=== PATIENT | female | born 1965 | race Two or more races ===

== ENCOUNTER 2024-02-08 16:00 | Inpatient (IN) | payer MEDICAID, OTHER ==
[~2024-02-08] VITALS: Ht 132.1 cm; Wt 68.6 kg
[2024-02-08] MEDS: ALBUTEROL SULF 2.5 MG/0.5ML(0.5%) NEB SOLN HHN ONE (16:39)
[2024-02-08 17:00] LABS: Basophils # (auto) 0.1 10 ^3/uL (0-0.2); Basophils % (auto) 0.8 % (0.0-2.0); Eosinophils # (auto) 0.2 10 ^3/uL (0-0.8); Eosinophils % (auto) 2.2 % (0.0-7.0); Hematocrit 42.9 % (36.0-46.0); Hemoglobin 14.7 g/dL (12.2-16.2); Lymphocytes # (auto) 2.9 10 ^3/uL (0.4-5.4); Lymphocytes % (auto) 40.7 % (10.0-50.0); Mean Corpuscular Hemoglobin 30.2 pg (28.0-32.0); Mean Corpuscular Hgb Conc. 34.2 g/dL (32.0-36.0); Mean Corpuscular Volume 88.2 fL (80.0-100.0); Monocytes # (auto) 0.5 10 ^3/uL (0-1.3); Monocytes % (auto) 6.3 % (0.0-12.0); Neutrophils # (auto) 3.6 10 ^3/uL (1.6-8.6); Nucleated Red Blood Cells % 0.1 %; Red Blood Cells 4.86 10^6/uL (4.0-5.20); Red Cell Distribution Width 13.6 % (11.8-14.3); White Blood Cell 7.2 10^3/uL (4.4-10.8)
[2024-02-08 17:10] LABS: Chloride 108 mmol/L (98-107); Potassium 4.2 mmol/L (3.5-5.1); Sodium 139 mmol/L (136-145)
[2024-02-08 17:11] LABS: Calcium 9.9 mg/dL (8.5-10.1)
[2024-02-08 17:16] LABS: BUN/Creatinine Ratio 16.5 (10.0-20.0); Blood Urea Nitrogen 14 mg/dL (9-23); Glucose 136 mg/dL (74-106)
[2024-02-08 17:36] LABS: Anion Gap 5 (5-15); Carbon Dioxide 26 mmol/L (20-30)
[2024-02-08 17:40] VITALS: PULSE 125; RESP 16; O2SAT 94
[2024-02-08] MEDS: methylPREDNISolone SOD SUCC 125 MG/2 ML VL IV ONE (17:41)
[2024-02-08 19:35] VITALS: PULSE 104; RESP 94; O2SAT 94
[2024-02-08] MEDS ORDERED: MORPHINE SULFATE INJ 2 MG/ml SYRG IV PRN ×2 (20:45)
[2024-02-08] MEDS ORDERED: ACETAMINOPHEN 325 MG TAB PO PRN (20:45)
[2024-02-08] MEDS ORDERED: HYDROcodone-ACET 5/325MG TAB PO PRN (20:45)
[2024-02-08] MEDS ORDERED: ONDANSETRON HCL 4 MG/2 ML VIAL IV PRN (20:45)
[2024-02-08] MEDS ORDERED: DOCUSATE SOD 100 MG CAP PO PRN (20:45)
[2024-02-08] MEDS ORDERED: NITROGLYCERIN 0.4 MG SL TAB SL PRN (20:45)
[2024-02-08 20:59] VITALS: BP 108/58; PULSE 109; RESP 24; O2SAT 95
[2024-02-08 23:10] VITALS: PULSE 102; RESP 20; O2SAT 94
[2024-02-08 23:20] VITALS: PULSE 99; RESP 18; O2SAT 100
[2024-02-08] MEDS: IPRATROPIUM BROM 0.5 MG/2.5ML INH SOL NEB SCH (23:33)
[2024-02-08] MEDS: ALBUTEROL SULF 2.5 MG/0.5ML(0.5%) NEB SOLN NEB SCH (23:33)
[2024-02-09] VITALS (17 sets, daily range): BP systolic 116–121; BP diastolic 64–79; PULSE 84–99; RESP 16–20; TEMP 97.5–98.3; O2SAT 90–96
[2024-02-09] MEDS: IOHEXOL 350 MG/ML 100ML IJ ONE (03:51)
[2024-02-09 06:28] LABS: Basophils # (auto) 0 10 ^3/uL (0-0.2); Basophils % (auto) 0.1 % (0.0-2.0); Eosinophils # (auto) 0 10 ^3/uL (0-0.8); Hematocrit 42.1 % (36.0-46.0); Hemoglobin 14.6 g/dL (12.2-16.2); Lymphocytes # (auto) 0.7 10 ^3/uL (0.4-5.4); Lymphocytes % (auto) 6.7 % (10.0-50.0); Mean Corpuscular Hemoglobin 30.7 pg (28.0-32.0); Mean Corpuscular Hgb Conc. 34.6 g/dL (32.0-36.0); Mean Corpuscular Volume 88.8 fL (80.0-100.0); Monocytes # (auto) 0.1 10 ^3/uL (0-1.3); Monocytes % (auto) 0.7 % (0.0-12.0); Neutrophils # (auto) 9.8 10 ^3/uL (1.6-8.6); Neutrophils % (auto) 92.5 % (37.0-80.0); Nucleated Red Blood Cells % 0.1 %; Red Blood Cells 4.74 10^6/uL (4.0-5.20); Red Cell Distribution Width 13.5 % (11.8-14.3); White Blood Cell 10.6 10^3/uL (4.4-10.8)
[2024-02-09 06:46] LABS: Alanine Aminotransferase 25 U/L (7-40); Alkaline Phosphatase 118 U/L (46-116); Anion Gap 14 (5-15); BUN/Creatinine Ratio 19.5 (10.0-20.0); Blood Urea Nitrogen 16 mg/dL (9-23); Calcium 10.3 mg/dL (8.7-10.4); Carbon Dioxide 21 mmol/L (20-30); Chloride 107 mmol/L (98-107); Glucose 147 mg/dL (74-106); Potassium 4.4 mmol/L (3.5-5.1); Sodium 142 mmol/L (136-145)
[2024-02-09 06:47] LABS: Albumin 4.4 g/dL (3.2-4.8); Aspartate Aminotransferase 20 U/L (13-40); Bilirubin, Total 0.4 mg/dL (0.2-1.0); Total Protein 7.6 g/dL (5.7-8.2)
[2024-02-09] MEDS: methylPREDNISolone SOD SUCC 40 MG/ML VL IV SCH (10:28)
[2024-02-09] MEDS: PANTOPRAZOLE 40 MG/10 ML VIAL INJ IV SCH (10:28)
[2024-02-09 10:48] LABS: Triglycerides 48 mg/dL (< 150)
[2024-02-09 10:49] LABS: LDL Cholesterol 132 mg/dL (< 100)
[2024-02-09 10:50] LABS: Cholesterol 174 mg/dL (< 200); HDL Cholesterol 48 mg/dL (40-59)
[2024-02-09 10:52] LABS: Free T4 (Free Thyroxine) 0.93 ng/dL (0.89-1.76)
[2024-02-10] VITALS (7 sets, daily range): BP systolic 116–125; BP diastolic 60–64; PULSE 65–92; RESP 16–18; TEMP 98–98.4; O2SAT 92–98
[2024-02-10 07:53] LABS: Urine Bacteria None Seen /hpf (None Seen)
[2024-02-10 08:06] LABS: Urine Blood Negative /uL (Negative); Urine Clarity Turbid (Clear); Urine Color Light-Yellow (Yellow); Urine Mucus FEW (None Seen); Urine Protein, UAD Negative (Negative); Urine Specific Gravity 1.018 (1.001-1.035); Urine Urobilinogen Normal (Negative); Urine WBC 23 /hpf (0 - 5)
== END 2024-02-10 13:20 | disposition home or self-care (01) | DRG 133 ==
LOC: ER 16:00 → EDBD 16:00 → TELE 20:38 → TELE-CENTR 02-09 09:12 → CENTRAL 02-09 19:08
PROVIDERS: ADMIT Internal Medicine; ATTEND Emergency Medicine
DX: J96.00 Acute respiratory failure, unspecified whether with hypoxia or hypercapnia (principal); E78.5 Hyperlipidemia, unspecified; M54.9 Dorsalgia, unspecified; R73.03 Prediabetes; Z85.3 Personal history of malignant neoplasm of breast; Z90.12 Acquired absence of left breast and nipple; I51.89 Other ill-defined heart diseases
CPT/HCPCS: 36415; 71045; 71260; 80048; 80053; 80061; 81001; 82306; 82607; 83036; 84439; 84443; 85025; 93306; 94640; 94644; 96374; C9113; G0378